=== PATIENT | female | born 2000 | race American Indian/Alaskan Native ===

== ENCOUNTER 2020-03-04 10:06 | Emergency (ER) | payer SELFPAY ==
[2020-03-04 10:13] VITALS: BP 158/101
--- NOTE | 2020-03-04 11:09 | Emergency Department Report ---
ED Extremity Problem HPI - General Chief complaint: Extremity Injury, Upper Stated complaint: (R) HAND SWOLLEN PAIN Source: patient Mode of arrival: Ambulatory Limitations: No Limitations - History of Present Illness Initial comments: 19-year-old -[place] female presents to the emergency room for 4-day history of right hand pain and swelling since waking up on Saturday. Patient states that she has had no recent trauma but about 2 months ago she had jammed her finger. Patient denies any fever denies any oozing not aware of any insect bite. Patient reports no known drug allergies takes no meds daily. Patient has no past medical history and no primary care provider. MD Complaint: extremity pain, extremity swelling Onset/Timin -: days(s) Location: right, other History of Same: No (Hand) Severity scale (0 -10): 9 Quality: aching Consistency: constant Worsens with: nothing Associated Symptoms: denies other symptoms - Related Data Previous Rx's Medication Instructions Recorded Last Taken Type Ibuprofen [Motrin 600 MG tab] 600 mg PO Q8H PRN #21 tablet 03/04/20 Unknown Rx cephALEXin [Keflex] 500 mg PO Q12HR 10 Days #20 cap 03/04/20 Unknown Rx Allergies Allergy/AdvReac Type Severity Reaction Status Date / Time No Known Allergies Allergy Unverified 03/04/20 10:11 ED Review of Systems ROS: Stated complaint: (R) HAND SWOLLEN PAIN Other details as noted in HPI Comment: All other systems reviewed and negative ED Past Medical Hx - Past Medical History Previous Medical History?: No - Surgical History Past Surgical History?: No - Social History Smoking Status: Never Smoker Substance Use Type: None - Medications Home Medications: Home Medications Medication Instructions Recorded Confirmed Last Taken Type Ibuprofen [Motrin 600 MG tab] 600 mg PO Q8H PRN #21 tablet 03/04/20 Unknown Rx cephALEXin [Keflex] 500 mg PO Q12HR 10 Days #20 cap 03/04/20 Unknown Rx ED Physical Exam - General Limitations: No Limitations General appearance: alert, in no apparent distress - Head Head exam: Present: atraumatic, normocephalic - Eye Eye exam: Present: normal appearance - Expanded Upper Extremity Exam Right Upper Arm exam: Present: normal inspection Elbow exam: Present: normal inspection Forearm Wrist exam: Present: normal inspection Hand Wrist exam: Present: tenderness, swelling, erythema (Right first meta carpal) Neuro motor exam: Present: wrist extension intact, thumb opposition intact, thumb IP flexion intact, thumb adduction intact Vascular: Present: normal capillary refill. Absent: vascular compromise - Back Exam Back exam: Present: normal inspection - Neurological Exam Neurological exam: Present: alert, oriented X3 - Psychiatric Psychiatric exam: Present: normal affect, normal mood ED Course Vital Signs 03/04/20 10:11 Temperature 98.3 F Pulse Rate 72 Respiratory 16 Rate Blood Pressure 158/101 O2 Sat by Pulse 99 Oximetry ED Medical Decision Making - Radiology Data Radiology results: report reviewed Referring Physician:ANA LILIA ALVARADOPatient Name:NIKI Grtient ID:[id number] of :[id number]:FemaleAccession:[id number] Date:0234-99-60Pmiall Status:Finalized Findings [facility] [address] [place] [address] XRay Report Signed Patient: NIKI LUCAS MR#: [id number] : 2000 Acct:[id number] Age/Sex: 19 / F ADM Date: 03/04/20 Loc: ED Attending Dr: Ordering Physician: BELÉN OBANDO Date of Service: 03/04/20 Procedure(s): XR hand 3+V RT Accession Number(s): [id number] cc: BELÉN OBANDO Fluoro Time In Minutes: RIGHT HAND 3 VIEWS INDICATION: pain and swelling. COMPARISON: No relevant prior imaging study available. FINDINGS: No acute/significant skeletal abnormality. There is very mild soft tissue swelling in the right index finger. No foreign bodies are seen. IMPRESSION: 1. No acute findings. Signer Name: Goldy Black MD Signed: 03/04/2020 11:47 AM Workstation Name: [id number] Transcribed By: JASKARAN Dictated By: Goldy Black MD Electronically Authenticated By: Goldy Black MD Signed Date/Time: 03/04/20 1147 DD/ 1146 TD/TT: - Medical Decision Making 19-year-old -[place] female presents to the emergency room for 4-day history of right hand pain and swelling since waking up on Saturday. Patient states that she has had no recent trauma but about 2 months ago she had jammed her finger. Patient denies any fever denies any oozing not aware of any insect bite. Patient reports no known drug allergies takes no meds daily. Patient has no past medical history and no primary care provider. Patient will be treated for cellulitis of Keflex 500 mg p.o. twice daily for 7 days patient to take ibuprofen or Tylenol for pain management. Recommend patient to follow-up with her primary care provider. Patient insist that she had a dislocation x-ray was ordered which shows no acute findings chest soft tissue swelling. Critical care attestation.: If time is entered above; I have spent that time in minutes in the direct care of this critically ill patient, excluding procedure time. ED Disposition Clinical Impression: Cellulitis of hand Disposition: DC- TO HOME OR SELFCARE Is pt being admited?: No Does the pt Need Aspirin: No Condition: Stable Instructions: Cellulitis (ED) Additional Instructions: Complete antibiotics as prescribed. Take pain medication as needed. Follow-up with a health provider I have listed 1 below for your concerns. Prescriptions: cephALEXin [Keflex] 500 mg PO Q12HR 10 Days #20 cap Ibuprofen [Motrin 600 MG tab] 600 mg PO Q8H PRN #21 tablet PRN Reason: Pain Referrals: PRIMARY CARE, [Primary Care Provider] - 3-5 Days [facility] [Provider Group] - 3-5 Days
--- NOTE | 2020-03-04 11:51 | XRay Report ---
RIGHT HAND 3 VIEWS INDICATION: pain and swelling. COMPARISON: No relevant prior imaging study available. FINDINGS: No acute/significant skeletal abnormality. There is very mild soft tissue swelling in the right index finger. No foreign bodies are seen. IMPRESSION: 1. No acute findings. Signer Name: Goldy Black MD Signed: 03/04/2020 11:47 AM Workstation Name: [id number]
== END 2020-03-04 12:00 | disposition home or self-care (01) ==
LOC: ED 10:06
DX: L03.113 Cellulitis of right upper limb (principal); Z79.899 Other long term (current) drug therapy
CPT/HCPCS: 99283